=== PATIENT | male | born 1960 | race Caucasian/White ===

== ENCOUNTER 2022-10-30 07:29 | Day surgery (SDC) | payer OTHER ==
[2022-10-29 15:23] LABS: Absolute Lymphocytes (CBC) 1.5 K/uL (0.7-4.9); Hematocrit 37.6 % (39.6-49.0); Lymphocytes % 29.7 % (15.3-44.8); MCV 86.7 fL (80-100); MPV 7.9 fL (7.6-11.3); RBC Red Blood Cell Count 4.33 M/uL (4.33-5.43)
--- NOTE | 2022-10-29 15:27 | RAD REPORT ---
EXAM DESCRIPTION: Baljit Montesinos (2 Views)10/29/2022 3:20 pm CLINICAL HISTORY: Preop for hernia repair COMPARISON: None FINDINGS: The lungs appear clear of acute infiltrate. The heart is normal size IMPRESSION: No acute abnormalities displayed
[2022-10-29 15:38] LABS: Potassium 4.4 mmol/L (3.5-5.1)
[2022-10-30] MEDS ORDERED: CEFAZOLIN SODIUM 1 GM/VIAL ONE (07:39)
[2022-10-30] MEDS ORDERED: Ringers Lactate 1,000 ML IV ONE ×2 (07:39→09:56)
[2022-10-30] MEDS ORDERED: FENTANYL CITR 100 MCG/2 ML ONE (08:17)
[2022-10-30] MEDS ORDERED: ROCURONIUM 50 MG/5 ML VIAL IV ONE (08:17)
[2022-10-30] MEDS ORDERED: propofoL 200 MG/20 ML VIAL IV ONE (08:17)
[2022-10-30] MEDS ORDERED: MIDAZOLAM HCL 2 MG/2 ML INJ ONE (08:17)
[2022-10-30] MEDS ORDERED: LIDOCAINE 2% MPF 5 ML VIAL ONE (08:17)
[2022-10-30] MEDS ORDERED: ONDANSETRON 4 MG/2 ML VIAL ONE (08:22)
[2022-10-30] MEDS ORDERED: dexAMETHasone 10 MG/ML VIAL ONE (09:15)
[2022-10-30] MEDS ORDERED: KETOROLAC 30 MG/ML INJ ONE (09:15)
[2022-10-30] MEDS ORDERED: EPHEDRINE SULF 50 MG/ML VIAL ONE (09:34)
--- NOTE | 2022-10-30 09:52 | P.BOP ---
Preoperative diagnosis: tender reducible left inguinal hernia Postoperative diagnosis: same Primary procedure: Laparoscopic repair of tender reducible left inguinal hernia with mesh Skid Road Man: KARINA KONG (INSPECTOR [employer]) Estimated blood loss: <10cc Specimen: sac Findings: left inguinal hernia indirect and direct Anesthesia: General Complications: None Transferred to: Recovery Room Condition: Good
[2022-10-30] MEDS ORDERED: TAMSULOSIN 0.4 MG SR CAP ONE (12:05)
[2022-10-30 12:16] VITALS: BP 123/70; TEMP 96; O2SAT 99
--- NOTE | 2022-10-30 18:15 | DS ---
Date of Discharge: 10/30/2022 Diagnosis: Reducible tender left inguinal hernia. Procedure: Laparoscopic repair of reducible tender left inguinal with mesh. Disposition: Home. Activity: As tolerated. No heavy lifting. Plan: Follow up in my office in 1 week. Call for appointment at [phone]. Keep area dry for 48 todd rs, then may shower. Keep Steri-Strips. Cold compress over the left inguinal region for 24 hours. OYN/ISABEL Voice ID: [id number] Report ID: [id number]
--- NOTE | 2022-10-30 18:42 | OP ---
Date of Procedure: 10/30/2022 Surgeon: Dipak Gonzalez MD [employer] Adviser: THAIS Pino. Preoperative Diagnosis: Tender reducible left inguinal hernia. Postoperative Diagnosis: Tender reducible left inguinal hernia. Procedure: Laparoscopic repair of tender reducible left inguinal hernia with mesh. Estimated Blood Loss: Less than 10 mL. Specimen: Hernia sac. Findings: Left inguinal hernia, direct and indirect. Anesthesia: General plus local. Complications: None. Implant: A 3D mesh medium size. Indication: This is the case of a male, who comes to us with a tender reducible left inguinal hernia . The benefits, alternatives, and risks of repair with mesh fully explained, which include, but not limited to infection, bleeding, damage to adjacent structures, anesthesia complication, recurrence, M I, and even . He also understands this may not relieve any symptoms. He might need more than o ne surgical intervention. He understood, signed consent. Procedure In Detail: The patient was brought to the operating room, placed in supine position. Anes thesia was done without complication. A time-out was called. Abdomen and inguinal region were prepp ed and draped in the usual sterile fashion. An incision was made in the infraumbilical region. The incision was carried down to find the anterior rectus sheath that was opened on the left side. The m uscle retracted laterally to expose the posterior rectus sheath. The extraperitoneal space was devel oped with the help of blunt dissection and a Spacemaker balloon-tipped catheter was placed over the a herve directed towards the pubic symphysis. The laparoscope was placed in that area and the balloon in flated under direct visualization to create the extraperitoneal space. After that, the balloon was d eflated and removed. Camera was placed and insufflation was started. Then, a 5 mm trocar was placed just above the pubic symphysis and custodial between the first and the second one. The preperitoneal space was further developed by exposing the inferior epigastric vessels and keeping them anterior. T he Lio ligament was dissected laterally to the junction with the iliac veins. The dissection cont inued inferiorly to the iliopubic tract avoiding damage to the femoral branch of the genitofemoral ne rve and lateral femoral cutaneous nerve. Cord structure was carefully skeletonized. We noticed the patient has 2 hernias, indirect and direct. The indirect hernia was carefully removed and reduced ba ck into the abdominal cavity. The direct hernia sac was carefully removed. This was done by gentle traction. At that moment, we introduced in that area a 3D mesh medium size in the left side. This m esh is designed and overall to completely cover the direct and indirect spaces. The mesh was secured in place with SorbaFix fixation device lateral and superior to the iliopubic tract and inferior and medial to the Lio ligament. We made sure that we have good hemostasis in the area. No bleeding. At that moment, I proceeded to place some local anesthetic over the working zone and then after that as we were holding the mesh in place and made sure the hernia sac is still retracted, we proceeded t hen to deflate the area under direct visualization. Trocars were removed. Anterior rectus sheath wa s closed with #1 Vicryl and the skin closed in a subcuticular fashion. Sponge count, instrument coun ts correct. The subcutaneous tissue was closed with 3-0 chromic and Steri-Strips on top. Sponge cou nt, instrument counts correct. The patient tolerated the procedure well. The patient was sent to [facility] in stable condition. At the end of the case, testicles within the scrotum. YON/ISABEL Voice ID: [id number] Report ID: [id number]
--- NOTE | 2022-10-31 18:11 | EKG ---
Test Date: 2022-10-29 Test Time: 15:01:05 [employer]: KALYN MEASUREMENT RESULTS: Intervals: Rate: 59 SD: 140 QRSD: 102 QT: 388 QTc: 384 [place]: P: 64 SD: 140 QRS: 32 T: 56 INTERPRETIVE STATEMENTS: Sinus bradycardia Otherwise normal ECG No previous ECG available for comparison Electronically Signed On 10-31-22 18:10:39 [employer]ARKER by Holland Malin
== END 2022-10-30 12:19 | disposition home or self-care (01) ==
LOC: OR 07:29
PROVIDERS: ATTEND Surgery
PROC: 0YU64JZ Supplement Left Inguinal Region with Synthetic Substitute, Percutaneous Endoscopic Approach (ICD-10-PCS; principal; 2022-10-30 08:45)
DX: K40.90 Unilateral inguinal hernia, without obstruction or gangrene, not specified as recurrent (principal)
CPT/HCPCS: 85025; 80048; 36415; 88302; 71046; 49650; J2704; J2001; J2250; J3010; J1100; J7120 ×2; J2405; J0690; 93005

== ENCOUNTER → 2025-05-02 | Day surgery (SDC) | payer OTHER ==
--- NOTE | 2025-05-02 23:24 | RAD REPORT ---
PROCEDURE: ULTRASOUND GUIDED BIOPSY Pre-procedure diagnosis: Right thyroid nodule Post-procedure diagnosis: Same as above. CLINICAL INDICATION: Histopathologic diagnosis and molecular characterization. Male, 65 years old. E 04.1 Previous biopsy of same target: No Additional clinical history: None. COMPLICATIONS: 02/11/2025. IMPRESSION: Percutaneous ultrasound-guided FNA biopsy of the right thyroid lobe dominant lesion. Additional procedure(s): None. PLAN: Specimen sent for evaluation. PROCEDURE DETAILS: Consent: Informed consent for the procedure including risks, benefits and alternatives was obtained a nd time-out was performed prior to the procedure. Preparation: The site was prepared and draped using all elements of maximal sterile barrier technique including sterile gloves, sterile gown, cap, mask, large sterile sheet, sterile ultrasound probe cover as needed, hand hygiene and cutaneous antisepsis with 2% chlorhexidine. Sedation: None utilized. Imaging prior to biopsy: The patient was positioned supine and initial imaging was performed. Biopsy: Local anesthesia was administered. Under ultrasound guidance, multiple 25-gauge biopsy needle s were advanced to the target and fine-needle aspiration biopsy Was performed. The biopsy needles were removed and a sterile dressing was applied. Number of specimens: 5 On-site biopsy touch preparation: Performed by the senior director of [employer] Additional sampling description: None. Preliminary assessment of sample adequacy: Adequate Tract embolization: None. Post-biopsy imaging findings: No immediate complications seen. Contrast used: None. Estimated blood loss: Less than 10 mL.
== END ==
LOC: FNA 10:01
PROVIDERS: ATTEND Otolaryngology
PROC: 0G9H3ZX Drainage of Right Thyroid Gland Lobe, Percutaneous Approach, Diagnostic (ICD-10-PCS; principal; 2025-05-02)
DX: E04.1 Nontoxic single thyroid nodule (principal)
CPT/HCPCS: 88162